=== PATIENT | female | born 1935 | race Caucasian/White ===

== ENCOUNTER 2017-09-24 11:46 | Emergency (ER) | payer BC ==
[2017-09-24] MEDS ORDERED: Ondansetron INJ* 2 MG/ML VIAL IV ONE (12:03)
[2017-09-24] MEDS ORDERED: NS 0.9% 1000 ML* 2,000 ML IV ONE (12:03)
[2017-09-24] MEDS ORDERED: Meclizine TAB* 12.5 MG PO ONE (12:03)
[2017-09-24 12:40] LABS: ABS Basophils 0 10^3/ul (0-0.2); ABS Eosinophils 0.1 10^3/ul (0-0.6); ABS Lymphocytes 0.9 10^3/ul (1.0-4.8); ABS Monocytes 0.4 10^3/ul (0-0.8); ABS Neutrophils 5.5 10^3/ul (1.5-7.7); ABS Nucleated RBC 0 10^3/ul; Eosinophil % 1.2 % (0-6); Hematocrit 42 % (35-47); Hemoglobin 14.3 g/dl (12.0-16.0); Lymphocyte % 13.5 % (25-47); Mean Corpuscular HGB Conc 34 g/dl (31-36); Mean Corpuscular Hemoglobin 30 pg (27-31); Mean Corpuscular Volume 87 fL (80-97); Mean Platelet Volume 8.5 um3 (7.4-10.4); Nucleated Red Blood Cells % 0; Platelet Count 178 10^3/ul (150-450); Red Blood Count 4.82 10^6/ul (4.0-5.4); Red Cell Distribution Width 13 % (10.5-15); White Blood Count 6.9 10^3/ul (3.5-10.8)
[2017-09-24 12:49] LABS: INR 0.94 (0.77-1.02)
--- NOTE | 2017-09-24 13:05 | RAD ---
INDICATION: Dizziness COMPARISON: CT brain July 27, 2015 TECHNIQUE: Noncontrast axial source images were acquired from the skull base to the vertex. FINDINGS: Ventricles/sulci: The ventricles and cisterns are normal in size and configuration for age. Brain parenchyma: There is no focal parenchymal finding, evidence of intracranial mass, or intracranial mass effect. Intracranial hemorrhage:None. Extra-axial spaces: There are no abnormal extra axial fluid collections or evidence of extra-axial mass. Calvarium: There is no calvarial fracture or other calvarial abnormality. Scalp: There is no evidence of scalp or extracalvarial soft tissue abnormality. Paranasal sinuses/mastoid: The paranasal sinuses and mastoid air cells are clear. Other: None. IMPRESSION: No acute intracranial findings.
[2017-09-24 13:16] LABS: EGFR Non-African American 51.9 (>60)
[2017-09-24] MEDS ORDERED: Magnesium Sulfate 2 GM IV* 2 GM/50 ML BAG IVPB ONE (13:47)
[2017-09-24 14:44] VITALS: BP 167/73
--- NOTE | 2017-09-24 18:47 | ED ---
Turner Luther Stephanie, scribed for Naun Cesar MD on 09/24/17 at 1210 . GI/ HPI - HPI Summary HPI Summary: The pt is an 82 y/o F presenting to the ED with c/o N/V/weakness since 09:30 today. Symptoms include room-spinning dizziness and lack of balance. The pt states her symptoms began abruptly and have been constant since onset. She states she was looking at her computer when her symptoms started. The pt denies ALCARAZ, rhinorrhea, sore throat, ear ache, and abd pain. Symptoms are aggravated by nothing and alleviated by nothing. - History of Current Complaint Time Seen by Provider: 09/24/17 12:03 Stated Complaint: N/V/WEAKNESS Hx Obtained From: Patient Onset/Duration: Started Hours Ago - 3, Still Present Timing: Constant Current Severity: Severe Associated Signs and Symptoms: Positive: Dizziness, Weakness, Nausea, Vomiting. Negative: Abdominal Pain Aggravating Factor(s): Nothing Alleviating Factor(s): Nothing - Additional Pertinent History Primary Care Physician: FLOYD - Allergy/Home Medications Allergies/Adverse Reactions: Allergies Allergy/AdvReac Type Severity Reaction Status Date / Time MS Sulfa Drugs [Sulfa Drugs] Allergy Severe Swelling Verified 07/27/15 12:04 Of Face,Lips,& Throat Home Medications: Home Medications Aspirin EC Low Dose* [Ecotrin EC Low Dose 81 MG*] 81 mg PO DAILY 09/24/17 [ History Confirmed 09/24/17] Hydrochlorothiazide TAB* [Hydrodiuril TAB*] 12.5 mg PO DAILY 09/24/17 [History Confirmed 09/24/17] Omeprazole CAP* [Prilosec CAP* 20 MG] 40 mg PO DAILY 09/24/17 [History Confirmed 09/24/17] PMH/Surg Hx/FS Hx/Imm Hx Endocrine/Hematology History: Reports: Hx Diabetes, Hx Thyroid Disease Denies: Hx Anticoagulant Therapy Cardiovascular History: Reports: Hx Deep Vein Thrombosis, Hx Hypertension EENT History: Denies: Hx Deafness Psychiatric History: Reports: Hx Anxiety - Surgical History Surgery Procedure, Year, and Place: hysterectomy. cholecystectomy - Family History Known Family History: Positive: Unknown - Reviewed and non-contributory - Social History Occupation: Retired Lives: With Family Alcohol Use: None Substance Use Type: Reports: None Hx Tobacco Use: No Smoking Status (MU): Never Smoked Tobacco Have You Smoked in the Last Year: No Review of Systems Negative: Fever Negative: Sore Throat, Ear Ache, Nasal Discharge Positive: Vomiting, Nausea. Negative: Abdominal Pain Neurological: Other - loss of balance Positive: Weakness. Negative: Headache All Other Systems Reviewed And Are Negative: Yes Physical Exam - Summary Physical Exam Summary: General: Mildly ill-appearing, mild pain distress Skin: warm, color reflects adequate perfusion, dry Head: normal Eyes: L beating nystagmus, PEE ENT: normal Neck: supple, nontender Respiratory: CTA, breath sounds present Cardiovascular: RRR Abdomen: soft, nontender Bowel: present Musculoskeletal: normal, strength/ROM intact Neurological: normal, sensory/motor intact, A&O x3, no focal neurological deficit Psychological: affect/mood appropriate Triage Information Reviewed: Yes Vital Signs On Initial Exam: Initial Vitals Temp Pulse Resp BP Pulse Ox 98.0 F 58 15 190/78 95 09/24/17 12:01 09/24/17 12:01 09/24/17 12:01 09/24/17 12:01 09/24/17 12:01 Vital Signs Reviewed: Yes Diagnostics - Vital Signs Vital Signs Temp Pulse Resp BP Pulse Ox 09/24/17 15:52 98.0 F 62 15 167/73 99 09/24/17 14:30 64 10 167/73 100 09/24/17 14:00 63 14 184/83 100 09/24/17 13:30 63 16 161/73 99 09/24/17 13:00 63 14 163/61 98 09/24/17 12:56 95 09/24/17 12:30 60 8 173/68 94 09/24/17 12:04 60 173/73 97 09/24/17 12:01 98.0 F 58 15 190/78 95 - Laboratory Lab Results: Lab Results 09/24/17 09/24/17 09/24/17 Range/Units 12:18 12:18 12:18 WBC 6.9 (3.5-10.8) 10^3/ul RBC 4.82 (4.0-5.4) 10^6/ul Hgb 14.3 (12.0-16.0) g/dl Hct 42 (35-47) % MCV 87 (80-97) fL MCH 30 (27-31) pg MCHC 34 (31-36) g/dl RDW 13 (10.5-15) % Plt Count 178 (150-450) 10^3/ul MPV 8.5 (7.4-10.4) um3 Neut % (Auto) 79.7 (38-83) % Lymph % (Auto) 13.5 L (25-47) % [place] % (Auto) 5.2 (0-7) % Eos % (Auto) 1.2 (0-6) % Baso % (Auto) 0.4 (0-2) % Absolute Neuts (auto) 5.5 (1.5-7.7) 10^3/ul Absolute Lymphs (auto) 0.9 L (1.0-4.8) 10^3/ul Absolute Monos (auto) 0.4 (0-0.8) 10^3/ul Absolute Eos (auto) 0.1 (0-0.6) 10^3/ul Absolute Basos (auto) 0 (0-0.2) 10^3/ul Absolute Nucleated RBC 0 10^3/ul Nucleated RBC % 0 INR (Anticoag Therapy) 0.94 (0.77-1.02) APTT 27.0 (26.0-36.3) seconds Sodium 133 L (139-145) mmol/L Potassium 3.5 (3.5-5.0) mmol/L Chloride 95 L (101-111) mmol/L Carbon Dioxide 23 (22-32) mmol/L Anion Gap 15 H (2-11) mmol/L BUN 13 (6-24) mg/dL Creatinine 1.02 H (0.51-0.95) mg/dL Est GFR ( Amer) 66.7 (>60) Est GFR (Non-Af Amer) 51.9 (>60) BUN/Creatinine Ratio 12.7 (8-20) Glucose 178 H (70-100) mg/dL Lactic Acid (0.5-2.0) mmol/L Calcium 10.1 (8.6-10.3) mg/dL Magnesium 1.5 L (1.9-2.7) mg/dL Total Bilirubin 0.70 (0.2-1.0) mg/dL AST 14 (13-39) U/L ALT 12 (7-52) U/L Alkaline Phosphatase 64 (34-104) U/L C-Reactive Protein 1.05 (< 5.00) mg/L Total Protein 7.4 (6.4-8.9) g/dL Albumin 4.4 (3.2-5.2) g/dL Globulin 3.0 (2-4) g/dL Albumin/Globulin Ratio 1.5 (1-3) Lipase 14 (11.0-82.0) U/L TSH 0.80 (0.34-5.60) mcIU/mL 09/24/17 Range/Units 12:18 WBC (3.5-10.8) 10^3/ul RBC (4.0-5.4) 10^6/ul Hgb (12.0-16.0) g/dl Hct (35-47) % MCV (80-97) fL MCH (27-31) pg MCHC (31-36) g/dl RDW (10.5-15) % Plt Count (150-450) 10^3/ul MPV (7.4-10.4) um3 Neut % (Auto) (38-83) % Lymph % (Auto) (25-47) % [place] % (Auto) (0-7) % Eos % (Auto) (0-6) % Baso % (Auto) (0-2) % Absolute Neuts (auto) (1.5-7.7) 10^3/ul Absolute Lymphs (auto) (1.0-4.8) 10^3/ul Absolute Monos (auto) (0-0.8) 10^3/ul Absolute Eos (auto) (0-0.6) 10^3/ul Absolute Basos (auto) (0-0.2) 10^3/ul Absolute Nucleated RBC 10^3/ul Nucleated RBC % INR (Anticoag Therapy) (0.77-1.02) APTT (26.0-36.3) seconds Sodium (139-145) mmol/L Potassium (3.5-5.0) mmol/L Chloride (101-111) mmol/L Carbon Dioxide (22-32) mmol/L Anion Gap (2-11) mmol/L BUN (6-24) mg/dL Creatinine (0.51-0.95) mg/dL Est GFR ( Amer) (>60) Est GFR (Non-Af Amer) (>60) BUN/Creatinine Ratio (8-20) Glucose (70-100) mg/dL Lactic Acid 2.2 H* (0.5-2.0) mmol/L Calcium (8.6-10.3) mg/dL Magnesium (1.9-2.7) mg/dL Total Bilirubin (0.2-1.0) mg/dL AST (13-39) U/L ALT (7-52) U/L Alkaline Phosphatase (34-104) U/L C-Reactive Protein (< 5.00) mg/L Total Protein (6.4-8.9) g/dL Albumin (3.2-5.2) g/dL Globulin (2-4) g/dL Albumin/Globulin Ratio (1-3) Lipase (11.0-82.0) U/L TSH (0.34-5.60) mcIU/mL Result Diagrams: 09/24/17 12:18 09/24/17 12:18 Lab Statement: Any lab studies that have been ordered have been reviewed, and results considered in the medical decision making process. - CT Brain CT Interpretation: No Acute Changes CT Interpretation Completed By: Radiologist - No acute intracranial findings. ED physician has reviewed this result. - EKG 12:08 Cardiac Rate: Bradycardia EKG Rhythm: Sinus Bradycardia - [address] Segment: Normal Ectopy: None Re-Evaluation - Re-Evaluation First Eval Re-Evaluation Time: 14:06 Change: Improved - The pt states she is not dizzy while laying on the stretcher however, she has not attempted to stand up and walk yet. Second Eval Re-Evaluation Time: 15:36 Change: Unchanged - The pt walked in the ED and felt better. She desires to be discharged home. GIGU Course/Dx - Course Course Of Treatment: BP noted and advised to follow up with PCP. IMPROVED IN ED AFTER IVF, ZOFRAN AND MECLIZINE. DISCUSSED RESULTS WITH PATIENT AND HER . PATIENT WALKED IN ED, WISHES TO GO HOME. F/U PMD; RETURN IF WORSE. - Diagnoses Provider Diagnoses: HTN (hypertension), Vertigo Discharge - Sign-Out/Discharge Documenting (check all that apply): Discharge - Discharge Plan Condition: Stable Disposition: HOME Prescriptions: Meclizine HCl [Motion Sickness Relief-] 25 mg PO Q6H PRN #20 tab PRN Reason: Dizziness Patient Education Materials: Vertigo (ED) Referrals: Meseret Mehta MD [Primary Care Provider] - Additional Instructions: FOLLOW UP WITH YOUR DOCTOR. RETURN TO THE EMERGENCY DEPARTMENT FOR ANY WORSENING OF YOUR CONDITION OR QUESTIONS OR CONCERNS. YOUR BLOOD PRESSURE WAS ELEVATED TODAY; FOLLOW UP WITH YOUR PRIMARY CARE DOCTOR WITHIN ONE WEEK. - Billing Disposition and Condition Condition: STABLE Disposition: HOME The documentation as recorded by the Turner silva Stephanie accurately reflects the service I personally performed and the decisions made by me, Naun Cesar MD.
== END 2017-09-24 15:52 | disposition home or self-care (01) ==
LOC: ED 11:46
DX: I10 Essential (primary) hypertension (principal); R42 Dizziness and giddiness; R53.1 Weakness; R11.2 Nausea with vomiting, unspecified
CPT/HCPCS: 36415; 70450; 80053; 83605; 83690; 83735; 84443; 85025; 85610; 85730; 86140; 93005; 96374; 99282; A9270-GY; J2405; J3475

== ENCOUNTER 2017-10-08 11:44 | Emergency (ER) | payer BC ==
--- NOTE | 2017-10-08 13:10 | RAD ---
HISTORY: Vertigo COMPARISONS: September 24, 2017 TECHNIQUE: Multiple contiguous axial CT scans were obtained of the head without intravenous contrast. FINDINGS: HEMORRHAGE/INFARCT: There is no hemorrhage or acute infarct. MASSES/SHIFT: There is no mass or shift. EXTRA-AXIAL SPACES: There are no extra-axial fluid collections. SULCI AND VENTRICLES: The sulci and ventricles are normal in size and position for the patient's stated age. CEREBRUM: There are no focal parenchymal abnormalities. BRAINSTEM: There are no focal parenchymal abnormalities. CEREBELLUM: There are no focal parenchymal abnormalities. VESSELS: The vessels are grossly normal. PARANASAL SINUSES: The paranasal sinuses are clear. ORBITS: The orbits are unremarkable. BONES AND SOFT TISSUE: No bone or soft tissue abnormalities are noted. OTHER: None IMPRESSION: NO ACUTE INTRACRANIAL PATHOLOGY.
[2017-10-08 13:29] LABS: Hematocrit 41 % (35-47); Hemoglobin 14.3 g/dl (12.0-16.0); Mean Corpuscular HGB Conc 35 g/dl (31-36); Mean Corpuscular Hemoglobin 30 pg (27-31); Mean Corpuscular Volume 86 fL (80-97); Mean Platelet Volume 8.1 um3 (7.4-10.4); Platelet Count 209 10^3/ul (150-450); Red Cell Distribution Width 13 % (10.5-15); White Blood Count 7.7 10^3/ul (3.5-10.8)
[2017-10-08 13:46] LABS: EGFR Non-African American 44.3 (>60)
[2017-10-08 14:26] VITALS: BP 154/81
--- NOTE | 2017-10-22 14:50 | ED ---
Turner Luther Stephanie, scribed for Andrea Zuniga MD on 10/08/17 at 1220 . Dizziness - HPI Summary HPI Summary: The pt is an 82 y/o F presenting to the ED with c/o dizziness that began last night at 11:50. Symptoms include L ear ache. The pt was recently in the ED 2 week ago after a bout of vertigo. Last night was her 4th attack of vertigo. She states at the onset of a vertigo episode, she experiences vision changes, nausea , vomiting and dry heaving. She denies CP. Alleviating factors include closing her eyes and sitting down. The pt states she was walking at onset of her symptoms yesterday. The pt reports hx of ringing in her L ear. She has been taking Claritin for the past few months to decrease the L ear ringing. The pt states it feels like her L ear is under water. The pt is currently taking Meclizine. - History Of Current Complaint Chief Complaint: EDDizziness Stated Complaint: DIZZY Time Seen by Provider: 10/08/17 12:03 Hx Obtained From: Patient Onset/Duration: Still Present Timing: Constant Severity Currently: Mild Character: Dizzy Aggravating Factor(s): Position Change, Other - ambulation Alleviating Factor(s): Rest, Lying Down, Closing Eyes Associated Signs And Symptoms: Positive: Nausea, Vomiting, Tinnitus - L ear, Visual Changes, Other: - L ear ache - Allergies/Home Medications Allergies/Adverse Reactions: Allergies Allergy/AdvReac Type Severity Reaction Status Date / Time MS Sulfa Drugs [Sulfa Drugs] Allergy Severe Swelling Verified 07/27/15 12:04 Of Face,Lips,& Throat Home Medications: Home Medications Amoxicillin PO (*) [Amoxicillin 875 MG (*)] 875 mg PO BID 10/08/17 [History Confirmed 10/08/17] Multivitamins/Minerals TAB* [Theragran/minerals TAB*] 1 tab PO DAILY 10/08/17 [ History Confirmed 10/08/17] PMH/Surg Hx/FS Hx/Imm Hx Endocrine/Hematology History: Reports: Hx Diabetes, Hx Thyroid Disease Denies: Hx Anticoagulant Therapy Cardiovascular History: Reports: Hx Deep Vein Thrombosis, Hx Hypertension Sensory History: Denies: Hx Deafness EENT History: Denies: Hx Deafness Psychiatric History: Reports: Hx Anxiety - Surgical History Surgery Procedure, Year, and Place: hysterectomy. cholecystectomy Infectious Disease History: No Infectious Disease History: Denies: Traveled Outside the [place] in Last 30 Days - Family History Known Family History: Positive: Unknown - Reviewed and non-contributory - Social History Occupation: Retired Lives: With Family Alcohol Use: None Hx Substance Use: No Substance Use Type: Reports: None Hx Tobacco Use: No Smoking Status (MU): Never Smoked Tobacco Have You Smoked in the Last Year: No Review of Systems Negative: Fever, Chills Negative: Erythema Positive: Ear Ache - L ear. Negative: Sore Throat Negative: Chest Pain Negative: Shortness Of Breath, Cough Positive: Vomiting, Nausea, Other - dry heaving. Negative: Abdominal Pain Negative: dysuria, hematuria Negative: Myalgia, Edema Negative: Rash Neurological: Other - dizziness All Other Systems Reviewed And Are Negative: Yes Physical Exam - Summary Physical Exam Summary: Constitutional: Well-developed, Well-nourished, Alert. (-) Distressed Skin: Warm, Dry HENT: Normocephalic; Atraumatic, R sided cerumen impaction Eyes: Conjunctiva normal Neck: Musculoskeletal ROM normal neck. (-) JVD, (-) Stridor, (-) Tracheal deviation Cardio: Rhythm regular, rate normal, Heart sounds normal; Intact distal pulses; The pedal pulses are 2+ and symmetric. Radial pulses are 2+ and symmetric. (-) Murmur Pulmonary/Chest wall: Effort normal. (-) Respiratory distress, (-) Wheezes, (-) Rales Abd: Soft, (-) Tenderness, (-) Distension, (-) Guarding, (-) Rebound Musculoskeletal: (-) Edema Lymph: (-) Cervical adenopathy Neuro: Alert, Oriented x3 Psych: Mood and affect Normal Triage Information Reviewed: Yes Vital Signs On Initial Exam: Initial Vitals Temp Pulse Resp BP Pulse Ox 98.7 F 87 20 165/80 99 10/08/17 11:48 10/08/17 11:48 10/08/17 11:48 10/08/17 11:48 10/08/17 11:48 Vital Signs Reviewed: Yes Diagnostics - Vital Signs Vital Signs Temp Pulse Resp BP Pulse Ox 10/08/17 11:48 98.7 F 87 20 165/80 99 - Laboratory Result Diagrams: 10/08/17 13:20 10/08/17 13:20 Lab Statement: Any lab studies that have been ordered have been reviewed, and results considered in the medical decision making process. - CT Brain CT Interpretation: No Acute Changes CT Interpretation Completed By: Radiologist - NO ACUTE INTRACRANIAL PATHOLOGY. ED physician has reviewed this report. - EKG 12:34 Cardiac Rate: NL EKG Rhythm: Sinus Rhythm - 71 BPM EKG Interpretation: No STEMI Re-Evaluation - Re-Evaluation First Eval Re-Evaluation Time: 14:09 Change: Improved - The pt was ambulatory with no symptoms. She states she feels better after having her ear flushed. Dizzy Course/Dx - Course Course Of Treatment: Given tinnitus and hearing loss, this could be Mnire's Disease or labyrinthitis. Cerumen impaction may also play a role although less likely. - Diagnoses Provider Diagnoses: Vertigo, Cerumen impaction, Clicking tinnitus of left ear Discharge - Sign-Out/Discharge Documenting (check all that apply): Discharge - Discharge Plan Condition: Stable Disposition: HOME Patient Education Materials: Meniere Disease (ED), Vertigo (ED), Labyrinthitis (ED) Referrals: Meseret Mehta MD [Primary Care Provider] - 2 Days Additional Instructions: Attend appointment with ENT specialist on Thursday10/12/17. RETURN TO THE EMERGENCY DEPARTMENT FOR CHANGING OR WORSENING SYMPTOMS. The documentation as recorded by the Turner silva Stephanie accurately reflects the service I personally performed and the decisions made by , Andrea Zuniga MD.
== END 2017-10-08 14:25 | disposition home or self-care (01) ==
LOC: ED 11:44
DX: R42 Dizziness and giddiness (principal); H61.22 Impacted cerumen, left ear; H93.12 Tinnitus, left ear; E11.9 Type 2 diabetes mellitus without complications; Z86.718 Personal history of other venous thrombosis and embolism; F41.9 Anxiety disorder, unspecified; Z88.2 Allergy status to sulfonamides; I10 Essential (primary) hypertension
CPT/HCPCS: 36415; 70450; 80053; 84484; 85027; 93005; 99283

== ENCOUNTER 2017-10-15 09:05 | Observation (INO) | payer BC ==
[2017-10-15] MEDS ORDERED: NS 0.9% 1000 ML* 1,000 ML IV ONE (09:36)
[2017-10-15] MEDS ORDERED: Ondansetron INJ* 2 MG/ML VIAL IV ONE (09:36)
[2017-10-15 09:50] LABS: Urine Appearance Clear; Urine Blood Negative (Negative); Urine Color Yellow; Urine Ketones Negative (Negative); Urine Protein Negative (Negative); Urine Specific Gravity 1.012 (1.010-1.030); Urine Urobilinogen Negative (Negative)
[2017-10-15 09:55] LABS: ABS Basophils 0 10^3/ul (0-0.2); ABS Eosinophils 0.1 10^3/ul (0-0.6); ABS Lymphocytes 0.9 10^3/ul (1.0-4.8); ABS Monocytes 0.3 10^3/ul (0-0.8); ABS Neutrophils 4.4 10^3/ul (1.5-7.7); ABS Nucleated RBC 0 10^3/ul; Eosinophil % 1.8 % (0-6); Hematocrit 41 % (35-47); Hemoglobin 14.3 g/dl (12.0-16.0); Lymphocyte % 16.2 % (25-47); Mean Corpuscular HGB Conc 35 g/dl (31-36); Mean Corpuscular Hemoglobin 30 pg (27-31); Mean Corpuscular Volume 86 fL (80-97); Mean Platelet Volume 7.9 um3 (7.4-10.4); Nucleated Red Blood Cells % 0; Platelet Count 179 10^3/ul (150-450); Red Blood Count 4.78 10^6/ul (4.0-5.4); Red Cell Distribution Width 13 % (10.5-15); White Blood Count 5.8 10^3/ul (3.5-10.8)
[2017-10-15 10:04] LABS: INR 0.9 (0.77-1.02)
[2017-10-15 10:14] LABS: EGFR Non-African American 58.4 (>60)
[2017-10-15] MEDS ORDERED: Aspirin 81 mg CHEW TAB* 81 MG TAB.CHEW PO ONE (10:17)
[2017-10-15] MEDS ORDERED: Metoprolol Tartrate IV* 1 MG/ML 5 ML VIAL IV ONE (10:17)
[2017-10-15] MEDS ORDERED: Aspirin 81 mg CHEW TAB* 81 MG TAB.CHEW ONE (10:18)
[2017-10-15] MEDS ORDERED: Metoprolol Tartrate IV* 1 MG/ML 5 ML VIAL ONE (10:19)
--- NOTE | 2017-10-15 10:23 | RAD ---
HISTORY: Rapid heart rate, dizziness COMPARISONS: July 27, 2015 VIEWS: 1: frontal portable view of the chest at 9:57 AM FINDINGS: LINES AND TUBES: None. CARDIOMEDIASTINAL SILHOUETTE: The cardiomediastinal silhouette is normal for portable technique. PLEURA: The costophrenic angles are sharp. No pleural abnormalities are noted. LUNG PARENCHYMA: The lungs are clear. ABDOMEN: There is moderate hiatal hernia. BONES AND SOFT TISSUES: No bone or soft tissue abnormalities are noted. IMPRESSION: HIATAL HERNIA. NO ACTIVE CARDIOPULMONARY DISEASE.
[2017-10-15] MEDS ORDERED: Dextrose 50% Syringe 50 ML* 25 GM/50 ML SYRINGE IV PUSH PRN (12:42)
[2017-10-15] MEDS ORDERED: Acetaminophen TAB* 325 MG PO PRN (12:42)
[2017-10-15] MEDS ORDERED: Ondansetron INJ* 2 MG/ML VIAL IV PRN (12:42)
[2017-10-15] MEDS ORDERED: hydrALAZINE IV* 20 MG/ML VIAL IV SLOW PU PRN (12:52)
[2017-10-15] MEDS ORDERED: Magnesium Sulfate 2 GM IV* 2 GM/50 ML BAG IVPB ONE (12:52)
[2017-10-15] MEDS: LORazepam TAB(*) 0.5 MG PO PRN ×2 (13:15→22:04)
[2017-10-15] MEDS: amLODIPine TAB* 5 MG PO SCH (13:16)
[2017-10-15] MEDS: Ramipril CAP* 10 MG PO SCH ×2 (13:16→21:55)
[2017-10-15] MEDS: Hydrochlorothiazide TAB* 25 MG PO SCH (13:16)
[2017-10-15] MEDS: Meclizine TAB* 12.5 MG PO SCH ×3 (13:16→21:56)
--- NOTE | 2017-10-15 13:52 | RAD ---
INDICATION: Dizziness. COMPARISON: Comparison is made with a prior CT of the brain from October 08, 2017. TECHNIQUE: Contiguous axial sections of the brain were obtained from the skull base to the vertex without contrast. FINDINGS: The ventricles, cisterns and sulci are enlarged consistent with age-related atrophy. No significant focal abnormality or mass effect is seen. There is no evidence for hemorrhage. No significant focal osseous abnormality is seen. The visualized portion of the paranasal sinuses and mastoid air cells appear clear. IMPRESSION: NO EVIDENCE FOR ACUTE INTRACRANIAL ABNORMALITY.
[2017-10-15] MEDS: Heparin VIAL(*) 5000 UNITS/ML VIAL (FIVE THOUSAND) SUBCUT SCH ×2 (14:48→21:56)
--- NOTE | 2017-10-15 15:15 | HP ---
CC: Dr. Mehta; Dr. Villegas.* HISTORY AND PHYSICAL: DATE OF ADMISSION: 10/15/17 PRIMARY CARE PROVIDER: Dr. Mehta. ATTENDING PHYSICIAN WHILE IN THE HOSPITAL: Dung Orellana MD * (report dictated by Jose Wong NP). CHIEF COMPLAINT: 1. Dizziness. 2. Nausea. HISTORY OF PRESENT ILLNESS: Ms. Sterling is an 82-year-old female patient. She carries a history of hypertension. She has had a history of vasogenic syncope in the past. She has a history of hyperlipidemia, DVT, anxiety, diabetes mellitus, Graves disease, and a history of stress incontinence. She comes into the ED today. She said she has had about 4 episodes of what she describes, she is calling, vertigo. She describes these episodes as periods where she feels lightheaded, feels like the room is going to the right. She says that when she gets them, she calls them attacks, she feels nauseated, she feels very weak with them. She said she does not faint, she feels like she might, but she does not pass out. She says that she does not get trouble with her vision. She says that she has to close her eyes. She does state that if she goes to sit up , things do feel worse but they also feel worse if she lays completely flat. She denied having any facial drooping, no weakness to one side. There was no visual disturbances, no trouble with her speech. She had been seen in the ED twice for these complaints, had been discharged. She actually did follow up with ENT and it was felt that this was not related to a labyrinthitis or inner ear infections. We are going to try to get those notes, but she says that despite this she woke up this morning. She had an episode when she woke up. She was feeling again lightheaded, dizzy, the room going to the right side. She had no blurred vision, no trouble with the speech. She says she felt nauseated. She was getting concerned. She felt weak like she could not sit up. She says that when she did try to walk, she felt very unsteady. She said she was having dry heaves. She denied having any recent ear pain, no ear discharge. She denied any recent URI symptoms. No fevers. No chest pain until she got here about 10:30, she had an episode of chest heaviness and tightness that lasted a few minutes and now has gone. She did state that when she woke up this morning, she felt like her heart was raising. She could not count the beat she said. There was concern because of these symptoms, she decided to come into the ER. She denied any syncope. She was evaluated here in the ED. There was concern because of the recurrence of these dizziness spells and also the chest discomfort. We were asked to evaluate for admission. PAST MEDICAL HISTORY: Significant for: 1. Hypertension. 2. Syncope. 3. Hyperlipidemia. 4. History of DVT. 5. Anxiety. 6. Diabetes. 7. Graves disease. 8. Now hypothyroidism. 9. Incontinence. PAST SURGICAL HISTORY: She has had a cholecystectomy, hysterectomy, appendectomy. MEDICATIONS: Home meds according to the list provided includes: 1. Metformin 500 mg p.o. b.i.d. 2. Amlodipine 10 mg p.o. daily. 3. Zocor 20 mg daily. 4. Ramipril 20 mg p.o. b.i.d. 5. Prilosec 40 mg daily. 6. Synthroid 100 mcg p.o. daily. 7. Ativan 0.5 mg p.o. t.i.d. as needed. 8. Lantus 30 units subcu daily. 9. Hydrochlorothiazide 12.5 mg daily. 10. Aspirin 81 mg p.o. daily. ALLERGIES TO MEDICATIONS: Include SULFA DRUGS. FAMILY HISTORY: Mother of a gastrointestinal hemorrhage. Father had a history of HI and CAD. SOCIAL HISTORY: She does not smoke, she does not drink. Surrogate decision maker is her and her daughter Mona. REVIEW OF SYSTEMS: There is no documented fever. She denied having any significant weight change. There was no double vision. She denies having any ear discharge. There was no rhinorrhea, no sore throat, no thyroid enlargement. Denied having any chest pain. There is no orthopnea. She denies having any nocturnal dyspnea. There is no abdominal pain. There was nausea, there was dry heaves. She did not vomit. She said she was not having any double vision. No ear discharge. She denies having any rhinorrhea. No loss of consciousness, no pruritus, no skin ulcerations. Review of 14 systems completed and all others negative. PHYSICAL EXAMINATION GENERAL: At this time Mrs. Sterling is an 82-year-old female patient. She is sitting in the ED stretcher. She does not appear to be in no acute distress. VITAL SIGNS: Blood pressure 198/96. She did not take her blood pressure meds this morning. Heart rate is 73, respirations were 18, O2 sat 99%, temperature 98.7. HEENT: Head normocephalic and atraumatic. Eyes; EOMs were intact. Sclerae anicteric and not pale. NECK: Supple. Throat; oral mucosa appears to be moist. No oropharyngeal erythema. LUNGS: Clear to auscultation bilaterally. No wheezes, rales, or rhonchi. HEART: Sounds S1 and S2. Regular, rate, and rhythm. No murmurs, rubs, or gallops. ABDOMEN: Soft, it was flat and nontender. Bowel sounds were present. EXTREMITIES: Pulses were 2+ throughout. She is moving all 4 extremities with 5 /5 strength. NEUROLOGIC: The patient is awake, she is alert. She is oriented x3. Her tongue is midline. Her director skills were equal. Finger to nose intact bilaterally. Heel to curiel intact bilaterally. She did have some nystagmus noted going to the patient's left which was horizontal. Visual acuity was intact. Cranial nerves were intact. No fascial drooping. Speech is clear. No gross focal deficits. SKIN: Intact. LABORATORY DATA: Reveal a WBC of 5.8, RBC of 4.78, hemoglobin of 14.3, hematocrit of 41, platelet count of 179, INR was 0.90, PTT at 29.9. Sodium was 138, potassium was 3.7, chloride 102, bicarb 27, BUN 17, creatinine 0.92, glucose of 154, lactic 1.7, calcium 9.8, mag 1.6. Total bili 0.6, AST 13, ALT 15, alk phos 70, CK 31, CK- MB 1.3, troponin 0. CRP of 1.13. TSH was 0.46, lipase normal at 13. A urine was obtained, negative. She did have a chest x-ray obtained today and to my review I do not appreciate any acute infiltrates. Radiology read as hiatal hernia. No active cardiopulmonary disease. She had 2 EKGs, EKG initially shows a normal sinus rhythm. No ST elevations or T-wave inversions. The EKG at 10:35 was taken during the episode of chest pain that she had here in the ED. We got no signs of ischemia. I reviewed it with the first EKG, it appears to be unchanged. I also reviewed with the EKG from the 12th of this month which appears to be unchanged, normal sinus rhythm. Initial EKG today was normal sinus rhythm at a rate of 80. Again, no ST elevation or T-wave inversions. There is normal axis. She did have a brain CT done on the about a week ago which reveals no acute intracranial pathology. Old medical records reviewed. ASSESSMENT AND PLAN: Mrs. Sterling is an 82-year-old female patient coming into the ED today with complaints of dizziness, also had an episode here in the ER of chest pain. We were asked to evaluate for admission. She will admitted under observation status for: 1. Dizziness. Again this does sound like it is peripheral, it is positional. I do get concerned because she had nystagmus, on my exam more prominent going to her left, from her right to her left. I did talk about this to Dr. Villegas. Plan will be to get PT involved. We will get an MRI of the brain. If the MRI is positive, then I would pursue echo workup in addition to this CTA of the head and neck. She is already on an aspirin and statin and will continue. But I think it is vertigo, I did continue her p.r.n. Ativan and added on some meclizine to see if this helps her and will continue to follow her and I will try to get the records from Dr. Tarango's office. 2. Chest pain. This certainly could be related to acute coronary syndrome. It is atypical. She described it as lasting minutes. It is was not a pressure. It did not go up into her jaw, down her arm. But with her history of diabetes, hypertension, and hyperlipidemia she has several risk factors. I did order serial troponins and a stress test tomorrow. If the CT brain is negative for the dizziness, we will continue her aspirin and I am also going to continue beta- malaika therapy. I did order an echo as well and on telemetry. 3. Hypertension. Her blood pressure has been well controlled down here. It is 198/70. She did not take her meds this morning. I am going to give her her blood pressure meds and I have added on p.r.n. hydralazine. Will continue to follow this. 4. History of syncope, not active at this point. Will continue to follow. 5. Hyperlipidemia: Continue statin therapy. 6. History of DVT: I will put her on prophylaxis with heparin pending the CT brain to make sure that is negative. 7. Anxiety: Continue p.r.n. lorazepam. 8. Diabetes: Lispro sliding scale and Lantus will be continued. 9. History of Graves disease and hypothyroidism: Continue her Synthroid. TSH was normal. 10. Hypomagnesemia: We will go head and replace this. I did order 2 g IV. 11. DVT prophylaxis. Again high risk. I am going to put her on heparin subcu , pending CT brain. 12. Code status. She wishes to actually be a DNR. She says there is her DNR in the system here, we will try to track this down. 13. Fluids, electrolytes, and nutrition. She can have a consistent carb diet. TIME SPENT: On the admission was approximately 60 minutes, greater than half that time was spent [id number] with the patient obtaining my history and physical. Other half the time was spent going over the plan of care with the patient and implementing plan of care. I discussed the plan of care with my attending Dr. Orellana who is in agreement. JOSE WONG NP [id number]/CPS #: [id number] STACY
--- NOTE | 2017-10-15 16:09 | ED ---
Atif Luther Jennifer, scribed for Naun Cesar MD on 10/15/17 at 0931 . Dizziness - HPI Summary HPI Summary: The patient is an 82 year old female who presents with vertigo that began suddenly when she woke up this morning. She additionally complains of waking up with a racing heart, as well as nausea and dry mouth. The patient reports she visited Dr. Tarango, ENT, who found no problems and referred the patient for cardiac evaluation. She denies abdominal pain. The patient explains that she felt a spinning sensation, but its better in the ED now. She describes that when the vertigo comes on, everything appears to be moving sideways quickly. Shutting her eyes alleviate the symptoms. She is accompanied by her daughter in the ED. - History Of Current Complaint Chief Complaint: EDDizziness Stated Complaint: RAPID HR,DIZZINESS Time Seen by Provider: 10/15/17 09:19 Hx Obtained From: Patient, Family/E Learning Manager - Daughter Onset/Duration: Suddenly Timing: Constant Severity Initially: Severe Severity Currently: Severe Character: Head Spinning, Dizzy Aggravating Factor(s): Nothing Alleviating Factor(s): Closing Eyes Associated Signs And Symptoms: Positive: Negative - Abdominal pain, Nausea, Palpitations, Other: - Dry mouth - Allergies/Home Medications Allergies/Adverse Reactions: Allergies Allergy/AdvReac Type Severity Reaction Status Date / Time Sulfa (Sulfonamide Allergy Swelling Verified 10/15/17 09:18 Antibiotics) Of Face,Lips,& Throat PMH/Surg Hx/FS Hx/Imm Hx Endocrine/Hematology History: Reports: Hx Diabetes, Hx Thyroid Disease Denies: Hx Anticoagulant Therapy Cardiovascular History: Reports: Hx Deep Vein Thrombosis, Hx Hypertension Sensory History: Denies: Hx Deafness Psychiatric History: Reports: Hx Anxiety - Surgical History Surgery Procedure, Year, and Place: hysterectomy. cholecystectomy Infectious Disease History: No Infectious Disease History: Denies: Traveled Outside the [place] in Last 30 Days - Family History Known Family History: Positive: None - Reviewed and non-contributory Negative: Hypertension, Diabetes - Social History Alcohol Use: None Substance Use Type: Reports: None Hx Tobacco Use: No Smoking Status (MU): Never Smoked Tobacco Have You Smoked in the Last Year: No Review of Systems ENT: Other - Dry mouth Positive: Palpitations Positive: Nausea Neurological: Other - Dizziness All Other Systems Reviewed And Are Negative: Yes Physical Exam - Summary Physical Exam Summary: General: well-appearing, no pain distress Skin: warm, color reflects adequate perfusion, dry Head: normal Eyes: EOMI, PEE ENT: Oral mucosa dry. Neck: supple, nontender Respiratory: CTA, breath sounds present Cardiovascular: RRR Abdomen: soft, nontender Bowel: present Musculoskeletal: normal, strength/ROM intact Neurological: normal, sensory/motor intact, A&O x3. Nystagmus - strongest left beating but present in right gaze and upward and downward gaze. No focal neurological deficit. Psychological: affect/mood appropriate Triage Information Reviewed: Yes Vital Signs On Initial Exam: Initial Vitals Temp Pulse Resp BP Pulse Ox 98.7 F 81 17 223/110 98 10/15/17 09:15 10/15/17 09:15 10/15/17 09:15 10/15/17 09:15 10/15/17 09:15 Vital Signs Reviewed: Yes Diagnostics - Vital Signs Vital Signs Temp Pulse Resp BP Pulse Ox 10/15/17 09:15 98.7 F 81 17 223/110 98 - Laboratory Lab Results: Lab Results 10/15/17 10/15/17 10/15/17 Range/Units 09:20 09:40 09:40 WBC (3.5-10.8) 10^3/ul RBC (4.0-5.4) 10^6/ul Hgb (12.0-16.0) g/dl Hct (35-47) % MCV (80-97) fL MCH (27-31) pg MCHC (31-36) g/dl RDW (10.5-15) % Plt Count (150-450) 10^3/ul MPV (7.4-10.4) um3 Neut % (Auto) (38-83) % Lymph % (Auto) (25-47) % [place] % (Auto) (0-7) % Eos % (Auto) (0-6) % Baso % (Auto) (0-2) % Absolute Neuts (auto) (1.5-7.7) 10^3/ul Absolute Lymphs (auto) (1.0-4.8) 10^3/ul Absolute Monos (auto) (0-0.8) 10^3/ul Absolute Eos (auto) (0-0.6) 10^3/ul Absolute Basos (auto) (0-0.2) 10^3/ul Absolute Nucleated RBC 10^3/ul Nucleated RBC % INR (Anticoag Therapy) 0.90 (0.77-1.02) APTT 29.9 (26.0-36.3) seconds Sodium 138 L (139-145) mmol/L Potassium 3.7 (3.5-5.0) mmol/L Chloride 102 (101-111) mmol/L Carbon Dioxide 27 (22-32) mmol/L Anion Gap 9 (2-11) mmol/L BUN 17 (6-24) mg/dL Creatinine 0.92 (0.51-0.95) mg/dL Est GFR ( Amer) 75.2 (>60) Est GFR (Non-Af Amer) 58.4 (>60) BUN/Creatinine Ratio 18.5 (8-20) Glucose 154 H (70-100) mg/dL Lactic Acid (0.5-2.0) mmol/L Calcium 9.8 (8.6-10.3) mg/dL Magnesium 1.6 L (1.9-2.7) mg/dL Total Bilirubin 0.60 (0.2-1.0) mg/dL AST 13 (13-39) U/L ALT 15 (7-52) U/L Alkaline Phosphatase 70 (34-104) U/L Total Creatine Kinase 31 (10-223) U/L CK-MB (CK-2) 1.3 (0.6-6.3) ng/mL Troponin I 0.00 (<0.04) ng/mL C-Reactive Protein 1.13 (< 5.00) mg/L Total Protein 7.1 (6.4-8.9) g/dL Albumin 4.3 (3.2-5.2) g/dL Globulin 2.8 (2-4) g/dL Albumin/Globulin Ratio 1.5 (1-3) Lipase 13 (11.0-82.0) U/L TSH 0.46 (0.34-5.60) mcIU/mL Urine Color Yellow Urine Appearance Clear Urine pH 7.0 (5-9) Ur Specific [place] 1.012 (1.010-1.030) Urine Protein Negative (Negative) Urine Ketones Negative (Negative) Urine Blood Negative (Negative) Urine Nitrate Negative (Negative) Urine Bilirubin Negative (Negative) Urine Urobilinogen Negative (Negative) Ur Leukocyte Esterase Negative (Negative) Urine Glucose Negative (Negative) 10/15/17 10/15/17 Range/Units 09:40 09:40 WBC 5.8 (3.5-10.8) 10^3/ul RBC 4.78 (4.0-5.4) 10^6/ul Hgb 14.3 (12.0-16.0) g/dl Hct 41 (35-47) % MCV 86 (80-97) fL MCH 30 (27-31) pg MCHC 35 (31-36) g/dl RDW 13 (10.5-15) % Plt Count 179 (150-450) 10^3/ul MPV 7.9 (7.4-10.4) um3 Neut % (Auto) 75.7 (38-83) % Lymph % (Auto) 16.2 L (25-47) % [place] % (Auto) 5.5 (0-7) % Eos % (Auto) 1.8 (0-6) % Baso % (Auto) 0.8 (0-2) % Absolute Neuts (auto) 4.4 (1.5-7.7) 10^3/ul Absolute Lymphs (auto) 0.9 L (1.0-4.8) 10^3/ul Absolute Monos (auto) 0.3 (0-0.8) 10^3/ul Absolute Eos (auto) 0.1 (0-0.6) 10^3/ul Absolute Basos (auto) 0 (0-0.2) 10^3/ul Absolute Nucleated RBC 0 10^3/ul Nucleated RBC % 0 INR (Anticoag Therapy) (0.77-1.02) APTT (26.0-36.3) seconds Sodium (139-145) mmol/L Potassium (3.5-5.0) mmol/L Chloride (101-111) mmol/L Carbon Dioxide (22-32) mmol/L Anion Gap (2-11) mmol/L BUN (6-24) mg/dL Creatinine (0.51-0.95) mg/dL Est GFR ( Amer) (>60) Est GFR (Non-Af Amer) (>60) BUN/Creatinine Ratio (8-20) Glucose (70-100) mg/dL Lactic Acid 1.7 (0.5-2.0) mmol/L Calcium (8.6-10.3) mg/dL Magnesium (1.9-2.7) mg/dL Total Bilirubin (0.2-1.0) mg/dL AST (13-39) U/L ALT (7-52) U/L Alkaline Phosphatase (34-104) U/L Total Creatine Kinase (10-223) U/L CK-MB (CK-2) (0.6-6.3) ng/mL Troponin I (<0.04) ng/mL C-Reactive Protein (< 5.00) mg/L Total Protein (6.4-8.9) g/dL Albumin (3.2-5.2) g/dL Globulin (2-4) g/dL Albumin/Globulin Ratio (1-3) Lipase (11.0-82.0) U/L TSH (0.34-5.60) mcIU/mL Urine Color Urine Appearance Urine pH (5-9) Ur Specific [place] (1.010-1.030) Urine Protein (Negative) Urine Ketones (Negative) Urine Blood (Negative) Urine Nitrate (Negative) Urine Bilirubin (Negative) Urine Urobilinogen (Negative) Ur Leukocyte Esterase (Negative) Urine Glucose (Negative) Result Diagrams: 10/15/17 09:40 10/15/17 09:40 Lab Statement: Any lab studies that have been ordered have been reviewed, and results considered in the medical decision making process. - Radiology CXR Xray Interpretation: No Acute Changes - HIATAL HERNIA. NO ACTIVE CARDIOPULMONARY DISEASE. Dr. Cesar has reviewed this report. Radiology Interpretation Completed By: Radiologist - EKG 9:58 Cardiac Rate: NL EKG Rhythm: Sinus Rhythm - 80 BPM Ectopy: PACs - a PAC EKG Interpretation: low voltage pre-cordial leads 10:35 Cardiac Rate: NL EKG Rhythm: Sinus Rhythm - [address] Segment: Normal Ectopy: PACs Dizzy Course/Dx - Course Course Of Treatment: Medications reviewed. Allergies noted. BP noted and advised to follow up with PCP. NO FOCAL NEUROLOGIC DEFICIT ON EXAM. ADMIT HOSPITALIST. - Diagnoses Provider Diagnoses: Hypertension, Recurrent vertigo, Chest pain, Palpitations Discharge - Sign-Out/Discharge Documenting (check all that apply): Discharge - Discharge Plan Condition: Stable Disposition: ADMITTED TO [facility] - Billing Disposition and Condition Condition: STABLE Disposition: [facility] [place], [place] The documentation as recorded by the Atif silva Jennifer accurately reflects the service I personally performed and the decisions made by me, Naun Cesar MD.
--- NOTE | 2017-10-15 16:53 | ECHO ---
Patient: ADRIENNE LARSON [facility] Rec#: [id number] : 1935 Date: 10/15/2017 Age: 82y Height: 157.48 cm / 62.0 in Weight: 70.31 kg / 155.0 lbs Sex: F BSA: 1.72 Room#: 3 Admit Date#: 10/15/2017 Type: Inpatient Referring: Jose Wong NP Reading: Juan Jose Zheng MD Ccu Nurse: Gregroia Bryant,SIVACS,RDMS CC: Meseret Mehta MD Transthoracic Echocardiogram Indication: CP, Near syncope BP: 198/96 HR: 73 Rhythm: NSR Findings History: Vasovagal syncope, HTN, HLD, DM Technical Comments: The study quality is good. The study was technically limited due to the patient's inability to lay in the left lateral decubitus position. Left Ventricle: The left ventricular chamber size is decreased. Mild to moderate concentric left ventricular hypertrophy is observed. Basal interventricular septum shows moderate thickening. Global left ventricular wall motion and contractility are within normal limits. The left ventricle appears hyperdynamic. The estimated ejection fraction is greater than 65%. There is an E to A reversal in the mitral valve flow pattern suggestive of diastolic dysfunction. Left Atrium: The left atrial chamber size is normal. Right Ventricle: The right ventricular chamber size and systolic function are within normal limits. Right Atrium: The right atrium is not well visualized.however appears grossly normal in size on 2D imaging. Aortic Valve: The aortic valve is trileaflet. The aortic valve leaflets are mildly thickened. There is no evidence of aortic regurgitation. There is no evidence of aortic stenosis. Mitral Valve: The mitral valve leaflets appear normal. There is mitral annular calcification. There is no evidence of mitral regurgitation. There is no evidence of mitral stenosis. Tricuspid Valve: The tricuspid valve leaflets are normal. There is trace tricuspid regurgitation. No pulmonary hypertension is noted. Pulmonic Valve: The pulmonic valve appears normal. There is trace to mild pulmonic regurgitation. There is no pulmonic stenosis. Pericardium: There is no significant pericardial effusion. Aorta: The aortic root appears normal. There is no dilatation of the aortic arch. Pulmonary Artery: The main pulmonary artery is not well visualized. Venous: The inferior vena cava appears normal in size. There is a greater than 50% respiratory change in the inferior vena cava dimension. Conclusions The left ventricle appears hyperdynamic. The estimated ejection fraction is greater than 65%. Global left ventricular wall motion and contractility are within normal limits. The left ventricular chamber size is decreased. There is an E to A reversal in the mitral valve flow pattern suggestive of diastolic dysfunction. Functionally benign heart valves. There is no prior echocardiogram available to compare with at this time. Measurements Name Value Normal Range RVIDd (AP) 2D 2.1 cm (0.9 - 2.6) IVSd (2D) 1.5 cm (0.6 - 1) LVPWd (2D) 1.1 cm (0.6 - 1) LVIDd (2D) 3.4 cm (3.6 - 5.4) LVIDs (2D) 2.5 cm - LV FS (2D) 26 % (25 - 45) Aortic Annulus 2 cm (1.4 - 2.6) Ao root diameter (2D) 2.6 cm (2.1 - 3.5) Ascending Ao 2.3 cm (2.1 - 3.4) Aortic arch 2.1 cm (1.8 - 3.4) LA dimension (AP) 2D 2.4 cm (2.3 - 3.8) LAd ISD 4CH 5.6 cm (2.9 - 5.3) LA ISD 4CH W 3.9 cm (2.5 - 4.5) Name Value Normal Range LA ESV SP 4CH (A/L) 58.62 ml - LA ESV SP 2CH (A/L) 43.78 ml - LA ESV BP (A/L) 51.47 ml - LA ESV BP (A/L) index 30 ml/m2 - LA ESV SP 4CH (MOD) 52.51 ml - LA ESV SP 2CH (MOD) 41.58 ml - Name Value Normal Range MV E-wave Vmax 0.7 m/sec - MV deceleration time 319 msec - MV A-wave Vmax 1.4 m/sec - MV E:A ratio 0.5 ratio - LV septal e' Vmax 0.06 m/sec - LV lateral e' Vmax 0.05 m/sec - LV E:e' septal ratio 12 ratio - LV E:e' lateral ratio 14 ratio - Name Value Normal Range AV Vmax 1.8 m/sec - AV VTI 40 cm - AV peak gradient 13 mmHg - AV mean gradient 7.6 mmHg - LVOT Vmax 1 m/sec - LVOT VTI 26 cm - LVOT peak gradient 4 mmHg - LVOT mean gradient 2.6 mmHg - MIREYA Vmax 0.6 m/sec - Name Value Normal Range MV Vmax 1.4 m/sec - MV VTI 35 cm - MV peak gradient 8 mmHg - MV mean gradient 2.5 mmHg - MV PHT 53 msec - MVA (PHT) 4.2 cm2 - Name Value Normal Range TR Vmax 2.8 m/sec - TR peak gradient 31 mmHg - RAP 3 mmHg - RVSP 34 mmHg - IVC diameter 1.9 cm - Name Value Normal Range PV Vmax 1.2 m/sec - PV peak gradient 6 mmHg -
[2017-10-15] MEDS: Insulin LISPRO* 1 UNITS UNIT SUBCUT SCH (18:10)
[2017-10-15] MEDS ORDERED: Gadoteridol* (CONTRAST) 279.3 MG/ML 10 ML IV ONE (20:36)
--- NOTE | 2017-10-15 21:08 | RAD ---
INDICATION: Dizziness, CVA. COMPARISON: Comparison is made with a prior MRI of the brain from July 11, [address] of the brain from October 15, 2017. TECHNIQUE: Sagittal T1, axial T1, T2, susceptibility, FLAIR and diffusion-weighted images were obtained. In addition, axial, sagittal and coronal T1-weighted images were obtained following intravenous injection of 14 ml of ProHance contrast. The overall signal is decreased due to the patient's positioning secondary to extreme vertigo limiting the study slightly. FINDINGS: The ventricles, cisterns and sulci are prominent consistent with diffuse atrophy. There are small focal areas of increased signal intensity in T2-weighted images present within the subcortical and periventricular white matter most consistent with mild chronic small vessel ischemic changes. No other focal abnormality or mass effect is seen. No abnormal area of enhancement is seen. No areas of restricted diffusion are present. There is no evidence for infarct or hemorrhage. The visualized portion of the paranasal sinuses and mastoid air cells appear clear. IMPRESSION: 1. NO EVIDENCE FOR ACUTE INTRACRANIAL ABNORMALITY. 2. ATROPHY AND MILD CHRONIC SMALL VESSEL ISCHEMIC CHANGES.
[2017-10-15] MEDS: Docusate CAP* 100 MG PO SCH (21:53)
--- NOTE | 2017-10-16 03:27 | CONS ---
CONSULTATION REPORT: DATE OF CONSULT: 10/15/17 PATIENT OF: Dr. Wong and Dr. Mehta. HISTORY OF PRESENT ILLNESS: This is an 82-year-old woman who had no episodes of dizziness, prior neurological symptoms other than syncope secondary to low blood pressure who in the past 4 weeks has had 4 episodes of vertigo. The vertigo was worse with changes in head position, rather she is laying down or sitting up. It is side to side movements. It is not whether she is upright or down. This is positional vertigo. She also has a fullness in her left ear like there is water in it and there is some ear pain and she has a buzzing in her ear. This is intermittent. She is seeing Dr. Tarango who saw no anatomic problems externally in her ear. She has been to the ER a couple of times for this. She has a history of high blood pressure, diabetes, thyroid disease, history of deep vein thrombosis, and hypertension. She has anxiety. She is status post hysterectomy and cholecystectomy. PAST SURGICAL HISTORY: Surgeries were as mentioned. MEDICATIONS: At home include: 1. Aspirin 81 mg daily. 2. Hydrochlorothiazide 12.5 daily. 3. Lantus 30 units subcu daily. 4. Ativan 0.5 p.r.n. 5. Synthroid 100 mcg daily. 6. Omeprazole 40 mg daily. 7. Altace 10 mg b.i.d. 8. Zocor 20 mg daily. 9. Norvasc 10 mg daily. 10. Metformin 500 mg daily. She is now getting some lorazepam for anxiety and Zofran p.r.n. ALLERGIES: She is allergic to SULFA meds. SOCIAL HISTORY: She does not smoke, drink, or use drugs. REVIEW OF SYSTEMS: Negative in all 14 spheres other than in HPI. PHYSICAL EXAM: Temperature 97.9, pulse 69, respirations 16, blood pressure 179/ 78. She is alert and oriented with normal speech and comprehension. Cranial nerves II through XII were intact, other than she had a left beating nystagmus and looking to the left, but not to the right. Discs were sharp. Motor exam revealed normal tone and strength. No pronator drift. [id number] was intact bilaterally. She said she was too tired to walk right now, but she walked earlier upon admission to the floor and was steady at this point. She says if she does not move her head, so does not become symptomatic. At this point, reflexes were trace to 1. Chest: Clear. Cardiovascular: Regular, rate , and rhythm without murmur. Abdomen: Soft with positive bowel sounds. DIAGNOSTIC STUDIES/LAB DATA: She has had a CT scan which show no acute abnormalities, there is some age-related atrophy. Labs include normal CBC, INR , PTT. Chemistries with magnesium of 1.6, TSH 0.46, UA was normal. IMPRESSION: Discussed with Anamaria that she most likely has a peripheral vertigo, this positional vertigo, a feeling a fullness in the ear and some tinnitus is associated with ataxia, unlikely to be central, but this is a pattern that is likely to persist and recur and it would make sense to get an MRI scan to screen for things like an acoustic neuroma. I discussed this with Jose Wong, Jasson and Ok on as needed basis and also to have Physical Therapy see if this could possibly be due to grit in her inner ear. I think that this is possible, but unlikely. My concern is that this could be the beginning of Meniere's and with some neuronitis. I discussed with her that Dr. Catalan who is an ENT causes issues in dizziness and because this problem may well persist. If she does not get better with physical therapy, I would recommend that she see him as an outpatient. Thank you for sharing her case. [id number]/[facility] #: [id number] MTDD
[2017-10-16] MEDS: Meclizine TAB* 12.5 MG PO SCH ×2 (05:28→13:12)
[2017-10-16] MEDS: Heparin VIAL(*) 5000 UNITS/ML VIAL (FIVE THOUSAND) SUBCUT SCH ×2 (05:29→15:25)
[2017-10-16 05:48] LABS: ABS Basophils 0 10^3/ul (0-0.2); ABS Eosinophils 0.2 10^3/ul (0-0.6); ABS Lymphocytes 1.9 10^3/ul (1.0-4.8); ABS Monocytes 0.5 10^3/ul (0-0.8); ABS Neutrophils 4.2 10^3/ul (1.5-7.7); ABS Nucleated RBC 0 10^3/ul; Eosinophil % 2.4 % (0-6); Hematocrit 40 % (35-47); Hemoglobin 13.9 g/dl (12.0-16.0); Lymphocyte % 28.5 % (25-47); Mean Corpuscular HGB Conc 35 g/dl (31-36); Mean Corpuscular Hemoglobin 30 pg (27-31); Mean Corpuscular Volume 86 fL (80-97); Mean Platelet Volume 8.2 um3 (7.4-10.4); Nucleated Red Blood Cells % 0.1; Platelet Count 199 10^3/ul (150-450); Red Blood Count 4.63 10^6/ul (4.0-5.4); Red Cell Distribution Width 13 % (10.5-15); White Blood Count 6.8 10^3/ul (3.5-10.8)
[2017-10-16] MEDS ORDERED: Omeprazole CAP* 20 MG PO SCH (07:30)
[2017-10-16] MEDS: Insulin LISPRO* 1 UNITS UNIT SUBCUT SCH ×2 (08:55→13:11)
[2017-10-16] MEDS ORDERED: Levothyroxine TAB* 100 MCG TAB PO SCH (09:00)
[2017-10-16] MEDS ORDERED: Aspirin EC TAB* 81 MG TAB.EC PO SCH (09:00)
[2017-10-16] MEDS ORDERED: Insulin GLARGINE(*) 1 UNITS UNIT SUBCUT SCH (09:00)
[2017-10-16] MEDS ORDERED: Atorvastatin* 10 MG TAB PO SCH (09:00)
[2017-10-16] MEDS: Hydrochlorothiazide TAB* 25 MG PO SCH (09:06)
[2017-10-16] MEDS: amLODIPine TAB* 5 MG PO SCH (09:07)
[2017-10-16] MEDS: Ramipril CAP* 10 MG PO SCH (09:07)
[2017-10-16] MEDS: Docusate CAP* 100 MG PO SCH (09:07)
[2017-10-16] MEDS: LORazepam TAB(*) 0.5 MG PO PRN (13:12)
[2017-10-16 16:01] VITALS: BP 143/76
--- NOTE | 2017-10-16 21:38 | PN ---
NEUROLOGICAL FOLLOWUP NOTE: DATE OF SERVICE: 10/16/2017. HISTORY: She notes that her dizziness is better and she has been able to walk without problem. MEDICATIONS: Her medications continue to be her: 1. Norvasc. 2. Aspirin. 3. Lipitor. 4. Colace. 5. Hydrochlorothiazide. 6. Insulin. 7. Meclizine. 8. Omeprazole. 9. Altace. PHYSICAL EXAMINATION: Temperature 98.7, pulse 61, respiratory rate 18, blood pressure 156/76. She is alert and oriented. Normal speech and comprehension. Cranial nerves II through XII are intact. She had slight nystagmus off to the left again today, but is improved. Motor exam revealed normal tone, strength, coordination. Chest: Clear. Cardiovascular: Regular rate and rhythm. DIAGNOSTIC DATA: Her MRI scan was reviewed earlier and did not show any acoustic neuroma or other acute intracranial abnormalities. There is atrophy and mild small- vessel ischemic disease. IMPRESSION: She is clinically doing better and can go home today on p.r.n. meclizine. Follow up with ENT as needed. It is appropriate. 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 If it continues to recur, would become diagnosis of Meniere's disease. It could alternatively just be viral. [id number]/[facility] #: [id number] [facility]
--- NOTE | 2017-10-16 23:52 | DS ---
DISCHARGE SUMMARY: DATE OF ADMISSION: 10/15/17 DATE OF DISCHARGE: 10/16/17 ATTENDING PHYSICIAN: Keyla Can MD* (dictated by Manisha Kahn NP). PRIMARY CARE PROVIDER: Dr. Mehta. PRIMARY DIAGNOSIS: Dizziness. SECONDARY DIAGNOSES: 1. Hypertension. 2. Syncope. 3. Hyperlipidemia. 4. History of deep venous thrombosis. 5. Anxiety. 6. Diabetes. 7. Graves disease. 8. Hypothyroidism. 9. Incontinence. STUDIES COMPLETED WHILE IN THE HOSPITAL: She had a chest x-ray on 10/15/17, radiologist Impression: Hiatal hernia, no active cardiopulmonary disease. She had a CT of the brain,, radiologist impression: No evidence of acute intracranial abnormality. She had a transthoracic echo on 10/15/17, conclusion : The left ventricle appears hyperdynamic. The estimated ejection fraction is greater than 65%. Global left ventricular wall motion and contractility are within normal limits. Left ventricular chamber size is decreased. There is E to A reversal of the mitral valve flow suggestive of diastolic dysfunction, functionally benign heart valves. The pulmonary valve appears normal. In the pericardium, there is no significant pleural effusion. She had an MRI of her brain on 10/15/17. MRI of the brain shows no evidence for: 1. Acute intracranial abnormality. 2. Atrophy and mild chronic small vessel ischemic changes. DISCHARGE MEDICATIONS: Meclizine 12.5 mg 1 tablet p.o. q.8 hours as needed for dizziness. Continued home medications: 1. Metformin 500 mg p.o. b.i.d. 2. Amlodipine 10 mg p.o. daily. 3. Zocor 20 mg p.o. daily. 4. Ramipril 20 mg p.o. b.i.d. 5. Prilosec 40 mg p.o. daily. 6. Synthroid 100 mcg p.o. daily. 7. Ativan 0.5 mg p.o. t.i.d. as needed for anxiety. 8. Lantus 30 units subcu daily. 9. Hydrochlorothiazide 12.5 mg p.o. daily. 10. Aspirin 81 mg p.o. daily. HISTORY OF PRESENT ILLNESS AND HOSPITAL COURSE: Ms. Asher Hernandez is an 82-year- old patient who carries a past medical history of hypertension, vasogenic syncope, hyperlipidemia, history of DVT, anxiety, diabetes mellitus, graves disease, and a history of stress incontinence who presented to the emergency room on 10/15/17 saying she had 4 episodes of what she calls vertigo, describes the episode of periods where she feels lightheaded and feels like the room is going to the right. She reports that when she has these attacks that she feels nauseated and very weak. She reports that she does not faint, but states that she feels as she might pass out. She denies any trouble with her vision. She reports that the symptoms increased with sitting and with lying. She denies any visual disturbances or trouble with her speech. She had been seen and treated in the emergency room twice for the same complaints and had been discharged. She did follow up with ENT and it was felt that this was not related to labyrinthitis or an inner ear infection. She reports on the morning of her admission, she woke up with an episode of dizziness and the room going to the right. She had no blurred vision, no trouble speaking. She felt nauseated and was getting concerned and felt she was weak like she could not sit up. She reports that she tried to walk, but her gait was very unsteady and that she was nauseated and having dry heaves. She denies any recent URI symptoms, cough, cold, or congestion. She denies any ear pain or ear discharge. Denies any fevers. During the emergency room, she was monitored, routine lab work was drawn. She had a CT of her head, which was negative. She also had a consultation from Dr. Villegas from Neurology. Dr. Villegas discussed with Anamaria that this was mostly related to her peripheral vertigo, this was positional vertigo, the feeling of fullness in her ear and sometimes tinnitus associated with ataxia and unlikely to be central, but this is a pattern that is likely to persist and reoccur and it would make sense to get an MRI to screen things like the acoustic nerve. She did have an MRI, which was negative. They also recommended physical therapy being inner ear and it was thought that this is possible, but unlikely. Dr. Villegas's concern was that this might be the beginning of Meniere's disease with some neuritis. He discussed with the patient seeing Dr. Catalan in [place], who is an ENT, that specializes in Meniere's disease. He also recommended that if she did not get better with physical therapy, he would recommend that she see Dr. Catalan as an outpatient. During her hospitalization Ms. Asher Hernandez reports that she never had any chest pain. She denies any chest pain. She denies any shortness of breath. It was initially thought that she did have some chest pain at home and a stress test was ordered, but she reiterates that she never had any chest pain and is able to walk up and down stairs, carry heavy boxes, and has never developed chest pain or shortness of breath. She reports that she is very active at home and has never developed any chest pain. She did have an echocardiogram during this hospitalization. Her EF is 65%. There was no wall motion abnormality. She did have serial troponins drawn, which were 0.00, 0.02, and 0.01. At this time , I do not feel that there is evidence for needing a nuclear stress test. If she should develop chest pain as an outpatient, this could be evaluated as an outpatient; but at this present time again, she has never had any chest pain or shortness of breath and is able to climb stairs and carry heavy objects without developing any chest pain or shortness of breath. REVIEW OF SYSTEMS: The patient denies any nausea, vomiting, or diarrhea. Denies any fever or chills. Denies any chest pain or shortness of breath. She does report that her dizziness has resolved. She denies any dysuria or urinary frequency. PHYSICAL EXAMINATION: Vital Signs: As follow: Temperature was 99.1, pulse of 74, respirations 16, O2 saturation was 97%, blood pressure 143/76. General: Ms. Asher Hernandez appears comfortable sitting in the bed. She is in no acute distress. Neuro: She is alert and oriented x3. She is able to move all extremities. There is no fascial asymmetry or any focal weakness. Extraocular eye movements are intact. Heart: S1, S2. There are no murmurs, rubs, or gallops. Lungs are clear to auscultation bilaterally. There is no use of her accessory muscles. Abdomen is soft and nontender. Bowel sounds are positive x4. Extremities: There is no cyanosis or edema. Skin: Intact. DISCHARGE PLAN: Ms. Asher Hernandez will be discharged back home. 1. Activity as tolerated. 2. As far as her vertigo, she can continue meclizine 12.5 mg p.o. q.8 hours as needed for dizziness. She should follow up with outpatient physical therapy for treatment of her vertigo, gait and mobility training. She reports that she is not dizzy at this time. It was also recommended that if her dizziness persist that she should follow up with Dr. Catalan in [place]. His phone number is [phone] as she may be developing the beginning of Meniere's disease. 3. For diabetes, she should resume all of her home medications. 4. For her hypertension, she should resume her previous home medications. She should also follow up with her primary care provider as during this hospitalization her blood pressure was high to see if she needs further management and titration of her current blood pressure medications. 5. For her anxiety, she should continue her lorazepam as needed. 6. For her Graves disease and hypothyroidism, she should continue on her Synthroid. Her TSH was within normal limits. She should follow up with her primary care provider in 4 to 7 days for any further management. It was recommended by Dr. Villegas to follow up with Dr. Catalan in [place] if her symptoms of dizziness persist as this may be the beginning of Meniere's disease. The patient was asked to return to the emergency room for any chest pain, shortness of breath, increased dizziness, unable to tolerate fluids or food or inability to ambulate or any other concerning medical symptoms. This is a summarization of her hospitalization. For further details, please see the entire medical record. TIME SPENT: Time spent on this discharge was approximately 60 minutes, greater than half that time was spent with the patient discussing discharge plans and instructions. CONDITION ON DISCHARGE: Stable. MANISHA DAYAMI, MORGAN [id number]/[facility] #: [id number] STACY
== END 2017-10-16 16:27 | disposition home or self-care (01) ==
LOC: ED 09:05 → MEDTELE 11:18
PROVIDERS: ADMIT Internal Medicine; ATTEND Internal Medicine
DX: R42 Dizziness and giddiness (principal); R07.9 Chest pain, unspecified; R11.0 Nausea; I10 Essential (primary) hypertension; R55 Syncope and collapse; E78.5 Hyperlipidemia, unspecified; E83.42 Hypomagnesemia; Z86.718 Personal history of other venous thrombosis and embolism; F41.9 Anxiety disorder, unspecified; E11.9 Type 2 diabetes mellitus without complications; E05.00 Thyrotoxicosis with diffuse goiter without thyrotoxic crisis or storm; E03.9 Hypothyroidism, unspecified; Z79.84 Long term (current) use of oral hypoglycemic drugs; Z79.899 Other long term (current) drug therapy; Z88.2 Allergy status to sulfonamides; R00.2 Palpitations
CPT/HCPCS: 36415; 70450; 70553; 71045; 80048; 80053; 80061; 81003; 82550; 82553; 83036; 83605; 83690; 83735; 84443; 84484; 85025; 85610; 85730; 86140; 93005; 93306; 96361; 96365; 96372; 96375; 99284; A9270-GY; A9579; G0378; G8978-GP-CI; G8979-GP-CI; G8980-GP-CI; J1644; J2405; J3475; J3490

== ENCOUNTER 2018-04-20 20:09 | Emergency (ER) | payer BC ==
[2018-04-20] MEDS ORDERED: Ondansetron INJ* 2 MG/ML VIAL IV ONE (20:16)
[2018-04-20] MEDS ORDERED: Acetaminophen TAB* 325 MG PO ONE (20:17)
[2018-04-20] MEDS ORDERED: Meclizine TAB* 12.5 MG PO ONE (20:37)
[2018-04-20] MEDS ORDERED: Meclizine TAB* 12.5 MG ONE (20:37)
[2018-04-20 20:38] LABS: ABS Basophils 0 10^3/ul (0-0.2); ABS Eosinophils 0.2 10^3/ul (0-0.6); ABS Lymphocytes 1.2 10^3/ul (1.0-4.8); ABS Monocytes 0.5 10^3/ul (0-0.8); ABS Neutrophils 5.7 10^3/ul (1.5-7.7); ABS Nucleated RBC 0 10^3/ul; Eosinophil % 2.4 % (0-6); Hematocrit 41 % (35-47); Hemoglobin 14.1 g/dl (12.0-16.0); Mean Corpuscular HGB Conc 34 g/dl (31-36); Mean Corpuscular Hemoglobin 30 pg (27-31); Mean Corpuscular Volume 86 fL (80-97); Mean Platelet Volume 8.2 um3 (7.4-10.4); Nucleated Red Blood Cells % 0.1; Platelet Count 197 10^3/ul (150-450); Red Blood Count 4.78 10^6/ul (4.00-5.40); Red Cell Distribution Width 14 % (10.5-15); White Blood Count 7.6 10^3/ul (3.5-10.8)
--- NOTE | 2018-04-20 20:55 | ED ---
Syncope/Near Syncope - HPI Summary HPI Summary: The pt is an 83 y/o female BIBA to [facility] c/o a head injury s/p a syncope episode [employer]. She fell hitting her head on a wooden floor and was unable to rise up afterwards. She reports multiple falls, LOC, ALCARAZ, bruising and L temporal lacerations but denies neck pain. She arrives with a laceration on her R temporal scalp and R thenar eminence with controlled bleeding. EMS notes a BP of 200/100 en route. Her witnessed the syncopal episode. - History Of Current Complaint Chief Complaint: EDHeadInjury Time Seen by Provider: 04/20/18 20:12 Hx Obtained From: Patient, EMS Onset/Duration: Sudden Onset, Resolved Context: Witnessed, Loss Of Consciousness Activity At Onset: Other - Walking Associated Head Trauma: Yes Associated Signs And Symptoms: Headache, Lightheadedness - Allergies/Home Medications Allergies/Adverse Reactions: Allergies Allergy/AdvReac Type Severity Reaction Status Date / Time Sulfa (Sulfonamide Allergy Swelling Verified 10/15/17 09:18 Antibiotics) Of Face,Lips,& Throat PMH/Surg Hx/FS Hx/Imm Hx Previously Healthy: No Endocrine/Hematology History: Reports: Hx Diabetes, Hx Thyroid Disease Denies: Hx Anticoagulant Therapy Cardiovascular History: Reports: Hx Deep Vein Thrombosis, Hx Hypertension Denies: Hx Pacemaker/ICD Sensory History: Denies: Hx Contacts or Glasses, Hx Deafness, Hx Hearing Aid Opthamlomology History: Denies: Hx Contacts or Glasses Psychiatric History: Reports: Hx Anxiety Denies: Hx Panic Disorder - Cancer History Cancer Type, Location and Year: None reported - Surgical History Surgery Procedure, Year, and Place: hysterectomy;. cholecystectomy;. appendectomy;. cataracts w/ IOL lens implant;. vein removal Infectious Disease History: No Infectious Disease History: Denies: Traveled Outside the [place] in Last 30 Days - Family History Known Family History: Negative: Hypertension, Diabetes - Social History Occupation: Retired Lives: With Family Alcohol Use: None Substance Use Type: Reports: None Hx Tobacco Use: No Smoking Status (MU): Never Smoked Tobacco Have You Smoked in the Last Year: No Review of Systems Constitutional: Other - Positive: LOC ENT: Negative - Neck pain Musculoskeletal: Other - Positive: Falls Skin: Other - Positive: L temporal and R thenar eminence lacerations with controlled bleeding Positive: Bruising Positive: Headache, Syncope All Other Systems Reviewed And Are Negative: Yes Physical Exam - Summary Physical Exam Summary: Appearance: Well-appearing, Well-nourished, lying in bed comfortably. Head trauma noted Skin: Large 2cm temporal-parietal hematoma, with minimal bleeding, Warm, dry, no obvious rash Eyes: sclera anicteric, no conjunctival pallor ENT: mucous membranes moist, pharynx appears normal Neck: Supple, Neck has full ROM with no tenderness Respiratory: Clear to auscultation, no signs of respiratory distress Cardiovascular: Normal S1, S2. No murmurs. Normal distal pulses in tibial and radial bilaterally. Abdomen: Soft, nontender, normal active bowel sounds present Musculoskeletal: Normal, Strength/ROM Intact Neurological: A&Ox3, awake and alert, mentation is normal, speech is fluent and appropriate Psychiatric: affect is normal, does not appear anxious or depressed GCS:15 Triage Information Reviewed: Yes Vital Signs On Initial Exam: Initial Vitals Pulse Pulse Ox 84 99 04/20/18 20:14 04/20/18 20:14 Vital Signs Reviewed: Yes Procedures - Laceration/Wound Repair 1 Location: head - L scalp Closure: [place] #__ - 2 Sterile Dressing Applied?: Yes 2 Location: upper extremity - R thenar eminence Closure: Skin Adhesive - Skin glue Sterile Dressing Applied?: Yes Diagnostics - Vital Signs Vital Signs Temp Pulse Resp BP Pulse Ox 04/20/18 20:18 98.3 F 78 18 188/88 98 04/20/18 20:15 83 188/88 99 04/20/18 20:14 84 99 - Laboratory Lab Results: Lab Results 04/20/18 Range/Units 20:27 WBC 7.6 (3.5-10.8) 10^3/ul RBC 4.78 (4.00-5.40) 10^6/ul Hgb 14.1 (12.0-16.0) g/dl Hct 41 (35-47) % MCV 86 (80-97) fL MCH 30 (27-31) pg MCHC 34 (31-36) g/dl RDW 14 (10.5-15) % Plt Count 197 (150-450) 10^3/ul MPV 8.2 (7.4-10.4) um3 Neut % (Auto) 74.2 (38-83) % Lymph % (Auto) 16.0 L (25-47) % [place] % (Auto) 6.9 (0-7) % Eos % (Auto) 2.4 (0-6) % Baso % (Auto) 0.5 (0-2) % Absolute Neuts (auto) 5.7 (1.5-7.7) 10^3/ul Absolute Lymphs (auto) 1.2 (1.0-4.8) 10^3/ul Absolute Monos (auto) 0.5 (0-0.8) 10^3/ul Absolute Eos (auto) 0.2 (0-0.6) 10^3/ul Absolute Basos (auto) 0 (0-0.2) 10^3/ul Absolute Nucleated RBC 0 10^3/ul Nucleated RBC % 0.1 Result Diagrams: 04/20/18 20:27 04/20/18 20:27 Lab Statement: Any lab studies that have been ordered have been reviewed, and results considered in the medical decision making process. - CT Brain CT CT Interpretation Completed By: ED Physician - IMPRESSION: This is a normal brain CT. Pending official interpretation. - EKG 20:21 Cardiac Rate: NL - 81 bpm EKG Rhythm: Sinus Rhythm Summary of EKG Findings: P waves, QRS complex, and T waves are within normal limits, T waves and intervals are normal, no ischemic changes. This is a normal EKG Course/Dx Course Of Treatment: An 83 year-old F presents to the ED with a CC of a head injury s/p a syncope episode [employer]. She fell hitting her head on a wooden floor and was unable to rise up afterwards. She reports multiple falls, LOC, ALCARAZ, bruising and L temporal lacerations but denies neck pain. She arrives with a laceration on her R temporal scalp and R thenar eminence with controlled bleeding. EMS notes a BP of 200/100 en route. Her witnessed the syncopal episode. A physical exam revealed a head trauma, a large 2 cm temporal- parietal hematoma, with minimal bleeding and a non-tender neck with full ROM. An EKG is unremarkable. In the ED, I repaired the R scalp laceration with 2 satya and the R thenar eminence with skin glue. In the ED course, pt was given Acetaminophen 975 mg PO, Meclizine 35 mg Po and Ondansetron 8mg IV which improved the symptoms. Patient will be discharged with a final Dx of concussion ans with instructions for skin adhesive care. Pt is agreeable with this plan. Allergies noted - Diagnoses Provider Diagnoses: Concussion Discharge - Sign-Out/Discharge Documenting (check all that apply): Patient Departure - DC - Discharge Plan Condition: Good Disposition: HOME Patient Education Materials: Concussion (ED), Skin Adhesive Care (ED) Referrals: Meseret Mehta MD [Primary Care Provider] - Additional Instructions: Take it easy over the next few days as it can take some time to recover from a head injury like this. - Attestation Statements Document Initiated by Scribe: Yes Documenting Scribe: Shauna Alberto Provider For Whom Scribe is Documenting (Include Credential): Dr. Lai Harley MD Scribe Attestation: Shauna Luther , scribed for Dr. Lai Harley MD on 04/21/18 at 0025.
[2018-04-20 21:04] LABS: EGFR Non-African American 50.6 (>60)
--- NOTE | 2018-04-20 21:04 | RAD ---
EXAM: CT Head Without Intravenous Contrast EXAM DATE/TIME: 04/20/2018 8:43 PM CLINICAL HISTORY: 83 years old, female; Injury or trauma; Fall; Initial encounter; Laceration; With loss of consciousness; Not specified; Without residual foreign body; Other: Occipital; Additional info: Fall, head traum left temporoparietal TECHNIQUE: Axial computed tomography images of the head/brain without intravenous contrast. All CT scans at this facility use at least one of these dose optimization techniques: automated exposure control; mA and/or kV adjustment per patient size (includes targeted exams where dose is matched to clinical indication); or iterative reconstruction. COMPARISON: BRAIN WO CT BRAIN WO 10/15/2017 1:33 PM FINDINGS: Brain: Chronic ischemic changes. Diffuse atrophy. No mass, acute hemorrhage, or edema. Ventricles: Compensatory ventriculomegaly. Bones/joints: Normal. No acute fracture. Sinuses: Normal as visualized. No acute sinusitis. Mastoid air cells: Normal as visualized. No mastoid effusion. Soft tissues: Extracranial soft tissue swelling overlying the left temporoparietal region. Vasculature: Atherosclerotic calcification. IMPRESSION: No acute intracranial abnormality. To contact [facility] with a general question: Operations Center - [phone] For direct physician to physician contact: Physician Hotline - [phone] [facility] ([facility] Facility ID #[id number])
[2018-04-20 21:53] VITALS: BP 151/83
== END 2018-04-20 22:02 | disposition home or self-care (01) ==
LOC: ED 20:09
DX: S06.0X1A Concussion with loss of consciousness of 30 minutes or less, initial encounter (principal); S01.01XA Laceration without foreign body of scalp, initial encounter; W18.00XA Striking against unspecified object with subsequent fall, initial encounter; Y92.9 Unspecified place or not applicable; R51 Headache; R42 Dizziness and giddiness; I10 Essential (primary) hypertension
CPT/HCPCS: 36415; 70450; 80053; 85025; 93005; 96374; 99284; A9270-GY; J2405

== ENCOUNTER 2021-12-26 14:01 | Inpatient (IN) ==
[2021-12-26 14:27] LABS: ABS Eosinophils 0.1 10^3/ul (0-0.6); ABS Monocytes 0.4 10^3/ul (0-0.8); ABS Neutrophils 7.4 10^3/ul (1.5-7.7); Eosinophil % 0.6 %; Hematocrit 39 % (35-47); Hemoglobin 12.6 g/dL (12.0-16.0); Lymphocyte % 11.2 %; Mean Corpuscular HGB Conc 33 g/dL (31-36); Mean Corpuscular Hemoglobin 28 pg (27-31); Mean Corpuscular Volume 86 fL (80-97); Mean Platelet Volume 8.4 fL (7.4-10.4); Platelet Count 235 10^3/uL (150-450); Red Cell Distribution Width 15 % (10-15); White Blood Count 8.8 10^3/uL (3.5-10.8)
[2021-12-26] MEDS ORDERED: NS 0.9% 1000 ml BAG 1,000 ML IV ONE (14:48)
[2021-12-26 15:08] LABS: Albumin 4.3 g/dL (3.2-5.2); Albumin/Globulin Ratio 1.4 (1-3); Calcium 9.9 mg/dL (8.6-10.3); Globulin 3.1 g/dL (2-4); Total Bilirubin 0.5 mg/dL (0.2-1.0); Total Protein 7.4 g/dL (6.4-8.9); eGFR CKD-EPI 45.9 (>60)
[2021-12-26] MEDS ORDERED: Heparin 2 UNITS/ML 1000 mls 3,000 ML IV ONE (15:55)
[2021-12-26] MEDS ORDERED: Lidocaine 1% MPF 5 ML VIAL ONE (15:55)
[2021-12-26] MEDS ORDERED: niCARdipine 0.1MG/ML IVPREMIX 20 MG/200 ML BAG IV ONE (15:55)
[2021-12-26] MEDS ORDERED: Iohexol 350 (CONTRAST) 200 ML MDV IV ONE (15:55)
[2021-12-26] MEDS ORDERED: Midazolam 5 mg/5 ml VIAL 1 mg/ml 5 ml VIAL (5 mg) ONE (15:55)
[2021-12-26] MEDS ORDERED: fentaNYL 100 mcg/2 ml 50 MCG/ML VIAL ONE (15:55)
[2021-12-26] MEDS ORDERED: Labetalol IV 5 MG/ML 20 ml VIAL ONE (15:55)
[2021-12-26] MEDS ORDERED: nitroGLYCERIN DRIP 25,000 MCG/250 ML BTL ONE (15:55)
[2021-12-26] MEDS ORDERED: Labetalol IV 5 MG/ML 20 ml VIAL IV PUSH ONE (15:56)
[2021-12-26] MEDS ORDERED: Heparin - STEMI 5,000 UNITS/ML 1 ml VIAL IV ONE (15:56)
[2021-12-26] MEDS ORDERED: Heparin 5000 UNITS/ML 1 mL VIAL ONE (15:56)
[2021-12-26] MEDS ORDERED: Heparin 1,000 UNIT/ML 10 ml (10,000 UNITS) CATHLAB/DIALYSIS ONE (15:56)
[2021-12-26 16:02] LABS: High Sensitivity Troponin 1 Hr 696 pg/mL (<15)
[2021-12-26] MEDS ORDERED: Eptifibatide IV (Load dose) 2 MG/ML 10 ml VIAL ONE ×2 (16:48→17:04)
[2021-12-26] MEDS ORDERED: Ondansetron 4 mg VIAL 2 MG/ML 2 ml VIAL IV PRN (17:50)
[2021-12-26] MEDS ORDERED: Ondansetron 4 mg VIAL 2 MG/ML 2 ml VIAL ONE (18:01)
[2021-12-26] MEDS ORDERED: Dextrose 50% Syringe 50 ml 25 GM/50 ML SYRINGE IV PUSH PRN (18:41)
[2021-12-26] MEDS ORDERED: Dextran 70/Hypromellose Tears Eye Drops 15 ml BTL (for Artificials Tears) BOTH EYES PRN (23:12)
[2021-12-26] MEDS: Dextran 70/Hypromellose Tears Eye Drops 15 ml BTL (for Artificials Tears) BOTH EYES PRN (23:19)
[2021-12-27] MEDS: Dextran 70/Hypromellose Tears Eye Drops 15 ml BTL (for Artificials Tears) BOTH EYES PRN ×2 (04:37→21:44)
[2021-12-27 05:00] LABS: ABS Eosinophils 0.1 10^3/ul (0-0.6); ABS Lymphocytes 1.4 10^3/ul (1.0-4.8); ABS Monocytes 0.9 10^3/ul (0-0.8); ABS Neutrophils 6.5 10^3/ul (1.5-7.7); Eosinophil % 1.3 %; Hematocrit 34 % (35-47); Hemoglobin 11.4 g/dL (12.0-16.0); Lymphocyte % 15.6 %; Mean Corpuscular HGB Conc 33 g/dL (31-36); Mean Corpuscular Hemoglobin 28 pg (27-31); Mean Corpuscular Volume 85 fL (80-97); Mean Platelet Volume 8.2 fL (7.4-10.4); Platelet Count 230 10^3/uL (150-450); Red Blood Count 4.02 10^6 /uL (3.70-4.87); Red Cell Distribution Width 14 % (10-15); White Blood Count 8.9 10^3/uL (3.5-10.8)
[2021-12-27] MEDS ORDERED: NS 0.9% 500 ml BAG 500 ML IV ONE (05:14)
[2021-12-27 05:47] LABS: Albumin 3.9 g/dL (3.2-5.2); Albumin/Globulin Ratio 1.5 (1-3); Calcium 9.1 mg/dL (8.6-10.3); Globulin 2.6 g/dL (2-4); HDL Cholesterol 37.4 mg/dL; Potassium 3.7 mmol/L (3.5-5.0); Total Bilirubin 0.7 mg/dL (0.2-1.0); Total Protein 6.5 g/dL (6.4-8.9); eGFR CKD-EPI 54.2 (>60)
[2021-12-27] MEDS ORDERED: Potassium Chlor 20 meq TAB.ER PO ONE (06:11)
[2021-12-27 06:34] LABS: Magnesium 1.8 mg/dL (1.9-2.7)
[2021-12-27] MEDS ORDERED: Magnesium Sulfate 2 gm BAG 2 GM/50 ML BAG IVPB ONE (06:59)
[2021-12-27] MEDS ORDERED: Insulin GLARGINE 100 un/ml 10 ml VIAL SUBCUT SCH (09:00)
[2021-12-27] MEDS: Insulin GLARGINE 100 un/ml 10 ml VIAL SUBCUT SCH (09:23)
[2021-12-27] MEDS ORDERED: Perflutren Lipid Microsphere 3 ML VIAL ONE (09:58)
[2021-12-27] MEDS: Loteprednol 0.5% OPH.SUSP(NF) 5 ML BTL BOTH EYES SCH ×3 (10:53→23:41)
[2021-12-27] MEDS ORDERED: Enalaprilat IV 1.25 mg/ml 1 ml VIAL (1.25 MG) IV PRN (20:35)
[2021-12-28] MEDS: Dextran 70/Hypromellose Tears Eye Drops 15 ml BTL (for Artificials Tears) BOTH EYES PRN ×2 (05:25→20:30)
[2021-12-28 07:57] LABS: ABS Eosinophils 0.1 10^3/ul (0-0.6); ABS Lymphocytes 1.2 10^3/ul (1.0-4.8); ABS Monocytes 0.7 10^3/ul (0-0.8); ABS Neutrophils 5.7 10^3/ul (1.5-7.7); Eosinophil % 1.7 %; Hematocrit 36 % (35-47); Hemoglobin 11.8 g/dL (12.0-16.0); Lymphocyte % 15.6 %; Mean Corpuscular HGB Conc 33 g/dL (31-36); Mean Corpuscular Hemoglobin 28 pg (27-31); Mean Corpuscular Volume 86 fL (80-97); Mean Platelet Volume 8.7 fL (7.4-10.4); Platelet Count 227 10^3/uL (150-450); Red Blood Count 4.14 10^6 /uL (3.70-4.87); Red Cell Distribution Width 15 % (10-15); White Blood Count 7.8 10^3/uL (3.5-10.8)
[2021-12-28 08:18] LABS: Calcium 9.3 mg/dL (8.6-10.3); Magnesium 2.2 mg/dL (1.9-2.7); Potassium 4.2 mmol/L (3.5-5.0); eGFR CKD-EPI 51.7 (>60)
[2021-12-28] MEDS: Insulin GLARGINE 100 un/ml 10 ml VIAL SUBCUT SCH (10:26)
[2021-12-28] MEDS: Loteprednol 0.5% OPH.SUSP(NF) 5 ML BTL BOTH EYES SCH ×3 (12:10→20:31)
[2021-12-28] MEDS ORDERED: Enoxaparin 40 MG/0.4 ML SYR SUBCUT SCH (16:00)
[2021-12-29] MEDS ORDERED: Insulin GLARGINE 100 un/ml 10 ml VIAL SUBCUT SCH (09:00)
[2021-12-29] MEDS: Loteprednol 0.5% OPH.SUSP(NF) 5 ML BTL BOTH EYES SCH ×2 (11:17→12:12)
[2021-12-29 12:51] VITALS: BP 146/73
[2021-12-29 14:44] LABS: Calcium 9.3 mg/dL (8.6-10.3); Potassium 4.1 mmol/L (3.5-5.0); eGFR CKD-EPI 40.8 (>60)
== END 2021-12-29 17:16 | disposition home or self-care (01) | DRG 247 ==
LOC: ED 14:01 → EDHOLD 16:27 → ICU 18:08 → MEDTELE 12-27 20:58
PROVIDERS: ADMIT Internal Medicine; ATTEND Internal Medicine Critical Care Medicine

== ENCOUNTER 2022-04-15 00:29 | Observation (INO) ==
[2022-04-15 01:36] LABS: ABS Basophils 0.1 10^3/ul (0-0.2); ABS Lymphocytes 1.2 10^3/ul (1.0-4.8); ABS Monocytes 0.8 10^3/ul (0-0.8); ABS Neutrophils 7.4 10^3/ul (1.5-7.7); Eosinophil % 0.5 %; Hematocrit 38 % (35-47); Hemoglobin 12.6 g/dL (12.0-16.0); Lymphocyte % 12.4 %; Mean Corpuscular HGB Conc 33 g/dL (31-36); Mean Corpuscular Hemoglobin 29 pg (27-31); Mean Corpuscular Volume 86 fL (80-97); Mean Platelet Volume 8.1 fL (7.4-10.4); Platelet Count 232 10^3/uL (150-450); Red Blood Count 4.42 10^6 /uL (3.70-4.87); Red Cell Distribution Width 17 % (10-15); White Blood Count 9.5 10^3/uL (3.5-10.8)
[2022-04-15 01:58] LABS: Activated Partial Thrombo Time 29.1 seconds (26.0-38.0); INR 0.97 (0.89-1.11)
[2022-04-15 02:18] LABS: Albumin 3.9 g/dL (3.2-5.2); Albumin/Globulin Ratio 1.4 (1-3); Calcium 9.5 mg/dL (8.6-10.3); Direct Bilirubin 0.1 mg/dL (0.03-0.18); Globulin 2.8 g/dL (2-4); Indirect Bilirubin 0.4 mg/dL (0.3-1.0); Potassium 4.5 mmol/L (3.5-5.0); Total Bilirubin 0.5 mg/dL (0.2-1.0); Total Protein 6.7 g/dL (6.4-8.9); eGFR CKD-EPI 31.3 (>60)
[2022-04-15] MEDS ORDERED: Iodixanol (CONTRAST) 320 MG/ML 100 ML SDV IV ONE (04:11)
[2022-04-15] MEDS ORDERED: Piperacillin/Tazobac ADVAN 3.375 GM in NS 0.9% 100 ml BAG 100 ML IV ONE ×3 (06:02→10:30)
[2022-04-15] MEDS ORDERED: Lactated Ringers 1000 ml BAG 1,000 ML IV ONE (06:02)
[2022-04-15 07:53] LABS: Hematocrit 35 % (35-47); Hemoglobin 11.6 g/dL (12.0-16.0)
[2022-04-15] MEDS ORDERED: Dextrose 50% Syringe 50 ml 25 GM/50 ML SYRINGE IV PUSH PRN (08:44)
[2022-04-15] MEDS ORDERED: NS 0.9% 1000 ml BAG 1,000 ML IV SCH (09:15)
[2022-04-15 09:30] LABS: High Sensitivity Troponin 1 Hr 20 pg/mL (<15)
[2022-04-15] MEDS ORDERED: Zosyn per Pharmacy NOTE FOLLOW UP SCH (10:00)
[2022-04-15] MEDS: Aspirin EC 81 mg TAB.EC (enteric coated) PO SCH (10:10)
[2022-04-15] MEDS: Fluticasone NASAL SPRAY 50MCG 16 gm SPRAY BTL INTRANASAL SCH ×2 (10:10→20:54)
[2022-04-15] MEDS: LOTEPREDNOL 0.5% BOTH EYES SCH ×2 (13:28→20:56)
[2022-04-15] MEDS ORDERED: Midazolam 2 mg/2 ml VIAL 1 mg/ml 2 ml VIAL (2 mg) ONE (15:24)
[2022-04-15] MEDS ORDERED: fentaNYL 100 mcg/2 ml 50 MCG/ML VIAL ONE (15:24)
[2022-04-15] MEDS: ZOSYN 3.375 GM Q8H per EXTENDED INFUSION IV SCH (20:50)
[2022-04-15 21:18] LABS: Hematocrit 37 % (35-47); Hemoglobin 12.5 g/dL (12.0-16.0)
[2022-04-16 02:00] LABS: Hematocrit 36 % (35-47); Hemoglobin 11.8 g/dL (12.0-16.0)
[2022-04-16] MEDS: ZOSYN 3.375 GM Q8H per EXTENDED INFUSION IV SCH (04:11)
[2022-04-16 06:25] LABS: ABS Basophils 0.1 10^3/ul (0-0.2); ABS Eosinophils 0.2 10^3/ul (0-0.6); ABS Lymphocytes 1.1 10^3/ul (1.0-4.8); ABS Monocytes 0.6 10^3/ul (0-0.8); ABS Neutrophils 5.7 10^3/ul (1.5-7.7); Eosinophil % 2.4 %; Hematocrit 37 % (35-47); Hemoglobin 12.5 g/dL (12.0-16.0); Lymphocyte % 14.5 %; Mean Corpuscular HGB Conc 34 g/dL (31-36); Mean Corpuscular Hemoglobin 30 pg (27-31); Mean Corpuscular Volume 88 fL (80-97); Mean Platelet Volume 8.1 fL (7.4-10.4); Platelet Count 199 10^3/uL (150-450); Red Blood Count 4.25 10^6 /uL (3.70-4.87); Red Cell Distribution Width 17 % (10-15); White Blood Count 7.7 10^3/uL (3.5-10.8)
[2022-04-16 06:49] LABS: Calcium 8.8 mg/dL (8.6-10.3); Potassium 4.2 mmol/L (3.5-5.0); eGFR CKD-EPI 42.5 (>60)
[2022-04-16] MEDS: Aspirin EC 81 mg TAB.EC (enteric coated) PO SCH (08:20)
[2022-04-16] MEDS: Fluticasone NASAL SPRAY 50MCG 16 gm SPRAY BTL INTRANASAL SCH ×2 (08:21→08:26)
[2022-04-16] MEDS: LOTEPREDNOL 0.5% BOTH EYES SCH (08:32)
[2022-04-16 11:39] VITALS: BP 159/67
== END 2022-04-16 15:09 | disposition home or self-care (01) ==
LOC: ED 00:29 → EDHOLD 07:28 → INTOOBSV 07:28 → EDHOLD 12:32 → MED 12:55
PROVIDERS: ADMIT Internal Medicine; ATTEND Internal Medicine